=== PATIENT | female | born 1985 | race Caucasian/White ===

== ENCOUNTER 2017-10-13 18:43 | Emergency (ER) | payer MEDICAID ==
[~2017-10-13] VITALS: Ht 167.6 cm; Wt 95.5 kg
[~2017-10-13 18:43] MED LIST: KLONOPIN1 MG PO; LINZESS145 MCG PO; LITHIUM CARBON300 MG PO; PROZAC20 MG PO; SEROQUEL100 MG PO; SEROQUEL400 MG PO
[2017-10-13 19:03] VITALS: Ht 167.6 cm; Wt 95.5 kg
[2017-10-13 20:54] LABS: BASOPHILS 0.4 % (0-2); EOSINOPHILS 10.2 % (0-7); HEMOGLOBIN 13.1 g/dL (12-16); IMMATURE GRANULOCYTES 0.3 % (0-5); LYMPHOCYTES 29.6 % (15-50); MCH 29.8 pg (26.0-34.0); MCHC 32.8 g/dL (31.0-37.0); MCV 91.1 fL (80.0-100.0); MEAN PLATELET VOLUME 9.2 fL (7.4-10.4); MONOCYTES 7.5 % (2-11); PLATELET COUNT 251 10x3/uL (130-400); RBC 4.39 10x6/uL (4.00-5.40); RDW 12.8 % (11.5-14.5); WBC 7.7 10x3/uL (4.8-10.8)
[2017-10-13 21:11] LABS: APPEARANCE CLEAR (CLEAR); BILIRUBIN NEGATIVE (NEGATIVE); COLOR YELLOW (YELLOW); GLUCOSE NEGATIVE (NEGATIVE); KETONE NEGATIVE (NEGATIVE); NITRITE NEGATIVE (NEGATIVE); PROTEIN NEGATIVE (NEGATIVE); SPECIFIC GRAVITY 1.025 (1.005-1.020); UROBILINOGEN NORMAL (NORMAL)
[2017-10-13 21:12] LABS: HCG URINE NEGATIVE (NEGATIVE)
[2017-10-13 21:19] LABS: ALBUMIN 3.5 g/dL (3.4-5.0); ALKALINE PHOSPHATASE 45 U/L (46-116); ALT (SGPT) 22 U/L (10-68); BILIRUBIN - TOTAL 0.14 mg/dL (0.2-1.3); CALC OSMOLALITY 280 mosm/kg (275-300); CALCIUM 8.4 mg/dL (8.5-10.1); CARBON DIOXIDE 27.5 mmol/L (21.0-32.0); CHLORIDE - SERUM 106 mmol/L (98-107); CREATININE - SERUM 0.8 mg/dL (0.6-1.3); GLUCOSE 89 mg/dL (74-106); POTASSIUM - SERUM 3.9 mmol/L (3.5-5.1); PROTEIN - SERUM 6.9 g/dL (6.4-8.2); SODIUM 141 mmol/L (136-145); UREA NITROGEN 16 mg/dL (7-18); eGFR NON AFRICAN AMERICAN 87 mL/min (90-120)
[2017-10-13] MEDS ORDERED: KEFLEX500 MG PO (21:54)
[2017-10-13] MEDS ORDERED: MEDROL DOSE PACK4 MG PO (21:54)
[2017-10-13] MEDS ORDERED: ULTRAM50 MG PO (21:54)
[2017-10-13 22:31] VITALS: BP 115/56
== END 2017-10-13 22:07 | disposition home or self-care (01) ==
LOC: D.ER 18:43
PROVIDERS: Family Medicine
DX: J01.90 Acute sinusitis, unspecified (principal); R51 Headache; F17.200 Nicotine dependence, unspecified, uncomplicated

== ENCOUNTER 2018-03-05 19:23 | Emergency (ER) | payer MEDICAID ==
[~2018-03-05] VITALS: Ht 167.6 cm; Wt 102.3 kg
[~2018-03-05 19:23] MED LIST changes: +KEFLEX500 MG PO; +MEDROL DOSE PACK4 MG PO; +ULTRAM50 MG PO
[2018-03-05 19:27] VITALS: Ht 167.6 cm; Wt 102.3 kg
[2018-03-05] MEDS ORDERED: TESSALON PERLE100 MG PO (20:31)
[2018-03-05] MEDS ORDERED: AMOXICILLIN875 MG PO (20:31)
[2018-03-05 21:46] VITALS: BP 110/60
== END 2018-03-05 21:46 | disposition home or self-care (01) ==
LOC: D.ER 19:23
DX: J40 Bronchitis, not specified as acute or chronic (principal); J02.9 Acute pharyngitis, unspecified; R50.9 Fever, unspecified; M54.2 Cervicalgia

== ENCOUNTER 2018-06-01 13:19 | Emergency (ER) | payer MEDICAID ==
[~2018-06-01] VITALS: Ht 167.6 cm; Wt 97.7 kg
[~2018-06-01 13:19] MED LIST changes: +AMOXICILLIN875 MG PO; +TESSALON PERLE100 MG PO
[2018-06-01 13:27] VITALS: Ht 167.6 cm; Wt 97.7 kg
[2018-06-01] MEDS ORDERED: AUGMENTIN 875-11 TAB PO (17:10)
[2018-06-01] MEDS ORDERED: TESSALON PERLE100 MG PO (17:10)
[2018-06-01 17:46] VITALS: BP 122/72
== END 2018-06-01 17:41 | disposition home or self-care (01) ==
LOC: D.ER 13:19
DX: H66.93 Otitis media, unspecified, bilateral (principal); J06.9 Acute upper respiratory infection, unspecified; J02.9 Acute pharyngitis, unspecified; R05 Cough; F17.200 Nicotine dependence, unspecified, uncomplicated